=== PATIENT | female | born 1985 | race Caucasian/White ===

== ENCOUNTER 2017-12-21 11:39 | Emergency (ER) | payer OTHER ==
[2017-12-21 11:56] VITALS: BP 129/73
--- NOTE | 2017-12-21 12:03 | UC ---
Skin Complaint HPI - HPI Summary HPI Summary: 32 yo female presents with swelling at the bridge of her nose. She tells me 2 days ago she popped a large pimple at the bridge of her nose - seems to be healing well, but today noticed some swelling around the area and she is concerned that there may be an underlying infection. Denies fever or chills - History of Current Complaint Chief Complaint: UCSkin Time Seen by Provider: 12/21/17 12:02 Stated Complaint: BRIDGE OF NOSE SWOLLEN Hx Obtained From: Patient Hx Last Menstrual Period: 12/03/17 Onset/Duration: Gradual Onset Current Severity: None Pain Intensity: 0 - Allergy/Home Medications Allergies/Adverse Reactions: Allergies Allergy/AdvReac Type Severity Reaction Status Date / Time clindamycin Allergy Rash Verified 12/21/17 11:54 codeine Allergy See Comment Verified 12/21/17 11:54 Home Medications: Home Medications Desog-E.estradiol/E.estradiol [Azurette 0.15-0.02/0.01 mg (11/08)] 1 tab PO DAILY 12/21/17 [History Confirmed 12/21/17] Review of Systems Constitutional: Negative Skin: Other - Swelling bridge of nose Eyes: Negative ENT: Negative Respiratory: Negative Cardiovascular: Negative Neurological: Negative Psychological: Negative All Other Systems Reviewed And Are Negative: Yes PMH/Surg Hx/FS Hx/Imm Hx - Additional Past Medical History Additional PMH: none - Surgical History Surgical History: None - Family History Known Family History: Positive: None - Social History Occupation: Employed Full-time Lives: With Family Alcohol Use: Occasionally Substance Use Type: None Smoking Status (MU): Never Smoked Tobacco Physical Exam - Summary Physical Exam Summary: GENERAL: NAD. WDWN. No pain distress. SKIN: 4mm diameter healing pimple in between eyebrows. No edema, erythema, or warmth to surrounding area. No streaking, bleeding, or drainage. NECK: Supple. Nontender. No lymphadenopathy. CHEST: No accessory muscle use. Breathing comfortably and in no distress. CV: Pulses intact. Cap refill <2seconds NEURO: Alert. PSYCH: Age appropriate behavior. Triage Information Reviewed: Yes Vital Signs: Initial Vital Signs Temp 98.3 F 12/21/17 11:49 Pulse 62 12/21/17 11:49 Resp 16 12/21/17 11:49 BP 129/73 12/21/17 11:49 Pulse Ox 99 12/21/17 11:49 Vital Signs Reviewed: Yes Course/Dx - Course Course Of Treatment: Pt appears well and I do not appreciate any edema or fluctuance around the area of concern. Advised to apply ice to the area and take ibuprofen. F/u if symptoms persist or worsen. - Diagnoses Provider Diagnoses: Pimple forehead Discharge - Sign-Out/Discharge Documenting (check all that apply): Patient Departure All imaging exams completed and their final reports reviewed: No Studies - Discharge Plan Condition: Stable Disposition: HOME Referrals: Adina Barton [Primary Care Provider] - Additional Instructions: If you develop a fever, shortness of breath, chest pain, new or worsening symptoms - please call your PCP or go to the ED. 1) Please apply ice to the area to decrease pain and swelling 2) May also take 600mg ibuprofen every 6-8 hours as needed to reduce pain and swelling 3) If you develop redness, warmth, fever, or increased pain/swelling - please be rechecked - Billing Disposition and Condition Condition: STABLE Disposition: Home
== END 2017-12-21 12:15 | disposition home or self-care (01) ==
LOC: UCEAST 11:39
DX: R23.8 Other skin changes (principal); Z88.1 Allergy status to other antibiotic agents; Z88.5 Allergy status to narcotic agent
CPT/HCPCS: 99211; G0463